=== PATIENT | male | born 1990 | race Caucasian/White ===

== ENCOUNTER 2016-06-10 04:32 | Emergency (ER) | payer OTHER ==
[2016-06-10 04:44] VITALS: BP 125/78
[2016-06-10] MEDS ORDERED: predniSONE TAB* 20 MG PO ONE (04:54)
[2016-06-10] MEDS ORDERED: Lidocaine 2% VISCOUS* 15 ML UDC PO ONE (04:54)
[2016-06-10] MEDS ORDERED: predniSONE TAB* 20 MG ONE (04:56)
[2016-06-10] MEDS ORDERED: Lidocaine 2% VISCOUS* 15 ML UDC ONE (04:56)
[2016-06-10] MEDS ORDERED: Lidocaine 2% VISCOUS* 15 ML UDC SWISH SPIT ONE (04:59)
--- NOTE | 2016-06-10 05:16 | ED ---
Ronny Fontanez Karl, scribed for Norma Micheluel on 06/10/16 at 0453 . Throat Pain/Nasal Congestion - HPI Summary HPI Summary: 26 y/o M presents w/ c/o throat pain. Pt has been on antibiotics for strep throat and it is not feeling any relief. Pt stated that it now feels like his throat is closing up and it is extremely difficult to swallow. Pt denied fever, SOB, and dysphagia. - History of Current Complaint Chief Complaint: EDThroatPain Time Seen by Provider: 06/10/16 04:46 Hx Obtained From: Patient Onset/Duration: Gradual Onset, Lasting Days, Still Present Severity: Mild Cough: None - Allergies/Home Medications Allergies/Adverse Reactions: Allergies Allergy/AdvReac Type Severity Reaction Status Date / Time No Known Allergies Allergy Verified 06/10/16 04:38 PMH/Surg Hx/FS Hx/Imm Hx Previously Healthy: Yes Infectious Disease History: No Infectious Disease History: Denies: Traveled Outside the [place] in Last 30 Days - Family History Known Family History: Negative: Cardiac Disease - Social History Alcohol Use: None Hx Substance Use: No Substance Use Type: Reports: None Hx Tobacco Use: No Smoking Status (MU): Never Smoked Tobacco Review of Systems Negative: Fever Eyes: Negative Positive: Sore Throat Cardiovascular: Negative Negative: Shortness Of Breath Gastrointestinal: Negative Genitourinary: Negative Musculoskeletal: Negative Skin: Negative Neurological: Negative Psychological: Normal All Other Systems Reviewed And Are Negative: Yes Physical Exam Triage Information Reviewed: Yes Vital Signs On Initial Exam: Initial Vitals Temp Pulse Resp BP Pulse Ox 98.5 F 74 16 125/78 100 06/10/16 04:38 06/10/16 04:38 06/10/16 04:38 06/10/16 04:38 06/10/16 04:38 Vital Signs Reviewed: Yes Appearance: Positive: Well-Appearing, No Pain Distress Skin: Positive: Warm, Skin Color Reflects Adequate Perfusion, Dry Head/Face: Positive: Normal Head/Face Inspection Eyes: Positive: EOMI, KRISTY ENT: Positive: Other - pharyngeal erythema Neck: Positive: Supple, Nontender Respiratory/Lung Sounds: Positive: Clear to Auscultation, Breath Sounds Present Cardiovascular: Positive: RRR, Pulses are Symmetrical in both Upper and Lower Extremities Abdomen Description: Positive: Nontender, Soft Bowel Sounds: Positive: Present Musculoskeletal: Positive: Normal, Strength/ROM Intact Neurological: Positive: Normal, Sensory/Motor Intact, Alert, Oriented to Person Place, Time Psychiatric: Positive: Affect/Mood Appropriate Diagnostics - Vital Signs Vital Signs Temp Pulse Resp BP Pulse Ox 06/10/16 04:38 98.5 F 74 16 125/78 100 - Laboratory Lab Statement: Any lab studies that have been ordered have been reviewed, and results considered in the medical decision making process. EENT Course/Dx - Course Course Of Treatment: pt has no dysphagia and sob and given viscous lidocaine and prednisone and pt feels better at present so will dc home. on prednisone. - Diagnoses Provider Diagnoses: Pharyngitis Discharge - Discharge Plan Condition: Stable Disposition: HOME Prescriptions: predniSONE TAB* [Deltasone TAB*] 50 mg PO ONCE #4 tab Patient Education Materials: Pharyngitis (ED) Additional Instructions: Please follow up at [facility] within the next 3 days. The documentation as recorded by the Ronny galan Karl accurately reflects the service I personally performed and the decisions made by Anand vincent Emmanuel.
== END 2016-06-10 05:18 | disposition home or self-care (01) ==
LOC: ED 04:32
DX: J02.9 Acute pharyngitis, unspecified (principal)
CPT/HCPCS: 99282; J7512